=== PATIENT | female | born 1965 | race Caucasian/White ===

== ENCOUNTER → 2021-08-06 12:36 | Outpatient (CLI) | payer BC, SELFPAY ==
--- NOTE | ~2021-08-06 | XR_ITS ---
EXAMINATION: XR chest 2V EXAM DATE: 08/06/2021 13:03 INDICATION: sometimes prod cough x 5 days positive COVID. TECHNIQUE: Portable AP frontal chest x-ray was obtained. There is no prior study for comparison. FINDINGS: Small amount of ill-defined bilateral airspace disease which could be early evidence of COV ID pneumonia. Follow-up can be obtained if symptoms persist. No pneumothorax or pleural effusion. Car diomediastinal silhouette is normal. Mild thoracal lumbar scoliosis. IMPRESSION: Small amount of ill-defined bilateral pneumonia. Reviewed, dictated and finalized at location A. MARKETING ANALYST
== END ==
PROVIDERS: Visit Provider Nurse Practitioner
DX: U07.1 COVID-19 (principal); J12.82 Pneumonia due to coronavirus disease 2019
CPT/HCPCS: 71046